=== PATIENT | female | born 1980 | race Caucasian/White ===

== ENCOUNTER 2022-09-18 19:50 | Emergency (ER) | payer MEDICAID, SELFPAY ==
[2022-09-18 20:06] VITALS: BP 144/90; PULSE 108; RESP 16; TEMP 36.4; O2SAT 98
[2022-09-18 21:11] LABS: Basophils Percent Auto 0.3 % (0.2-1.2); Eosinophils Absolute Auto 0.2 K/mm3 (0-0.3); Eosinophils Percent Auto 1.5 % (0-4.4); Hemoglobin 14.5 g/dL (12.0-15.0); Immature Granulocyte Absolute 0.05 K/mm3 (0.00-0.031); Immature Granulocyte Percent A 0.4 % (0-0.5); Lymphocytes Absolute Auto 1.35 K/mm3 (0.9-3.2); Lymphocytes Percent Auto 11.8 % (18.3-44.2); Mean Corpuscular HGB Conc 33.7 g/dl (32-36); Mean Corpuscular Hemoglobin 29.9 pg (26-34); Mean Corpuscular Volume 88.7 fl (80-100); Mean Platelet Volume 9.9 fl (7.4-10.4); Monocytes Absolute Auto 0.7 K/mm3 (0.1-0.6); Neutrophils Absolute Auto 9.1 K/mm3 (1.3-6.7); Platelet Count Result 352 k/mm3 (150-375); Red Blood Count 4.85 M/mm3 (4.2-5.4); White Blood Count 11.4 K/mm3 (4.5-10.0)
--- NOTE | 2022-09-18 21:11 | ED.GENADULT ---
HPI - General Adult General Chief complaint: Abdominal Pain Stated complaint: diarrhea, vomiting, abdominal pain Time Seen by Provider: 09/18/22 21:01 History of Present Illness HPI narrative: 42-year-old female with history of diabetes presented to the emergency department for evaluation of of nausea vomiting diarrhea and upper abdominal pain. Patient states that the symptoms started few days ago. Patient reports the diarrhea has since resolved but she still has nausea vomiting and epigastric abdominal pain. Patient describes the pain as sharp and is a 4 out of 10. Patient has only been taking Tylenol for pain control. Patient states she did have a recent rotator cuff surgery but has not been taking ibuprofen. Patient does have a prior history of cholecystectomy. Patient denies daily alcohol consumption and denies prior history of pancreatitis. Related Data Allergies Allergy/AdvReac Type Severity Reaction Status Date / Time No Known Allergies Allergy Verified 08/13/19 11:13 Review of Systems Review of Systems: CONSTITUTIONAL: Denies fever, chills, or sweats. EYES: Denies visual changes, redness, or discharge. ENT: Denies rhinorrhea, congestion, sore throat, or otalgia. CARDIOVASCULAR: Denies chest pain, palpitations, or edema. RESPIRATORY: Denies cough or dyspnea. GASTROINTESTINAL: See HPI GENITOURINARY: Denies dysuria or hematuria. SKIN: Denies rash or itching. MUSCULOSKELETAL: Denies back pain, joint pain, or myalgia. NEUROLOGIC: Denies headache, numbness, or weakness. [facility] Past Medical History Medical History (Updated 09/19/22 @ 00:00 by Background Dazaida) Anemia Anxiety Asthma Depression Diabetes GERD (gastroesophageal reflux disease) Surgical History Surgical History Hx of cholecystectomy Social History Social History Smoking packs per day: 0.5 Smoking cigarettes per day: 10.0 Smoking status: Current every day smoker Exam Narrative: APPEARANCE: Well appearing, no pain, no distress, well-nourished. HEAD: normocephalic, atraumatic. EYES: PERRLA/EOMI, conjunctivae clear. NOSE: Normal no drainage NECK: Supple. No adenopathy, no masses. RESPIRATORY: Airway patent, respirations nonlabored. Clear to auscultation bilaterally, no rales, rhonchi, wheezing. CARDIOVASCULAR: Regular rate and rhythm without murmurs rubs or gallops. ABDOMINAL: Soft, reproducible epigastric tenderness to palpation. Normal bowel sounds. MUSCULOSKELETAL: Moves all extremities. Strength/ROM intact, No edema, No calf tenderness. NEURO: Alert. Cranial nerves II through XII intact. Grossly intact SKIN: Warm, dry. Normal Color Course Course Emergency Course: Patient was treated with IV Zofran and IV fluids. Differential diagnosis for patient's symptoms does include gastroenteritis, colitis, gastroenteritis, esophagitis. Patient is mildly tender to palpation but has normal bowel sounds. No lower abdominal tenderness to palpation. Patient is being treated with a GI cocktail, IV fluids and IV Zofran. Patient is afebrile but does have a leukocytosis of 11.4. Patient hemoglobin is stable. Patient's blood glucose is elevated but patient is diabetic. Patient was treated with 1 L of IV normal saline. Patient did feel improved with treatment of the GI cocktail. Patient does have some elevated transaminases but patient's T bili is at baseline. Patient has no right upper quadrant tenderness to palpation. Patient's lipase is not elevated so less concern for pancreatitis. Due to patient's symptoms being resolved with a GI cocktail and patient having minimal tenderness to palpation and a nonsurgical abdomen patient will be discharged home with Zofran, clear liquid diet. Patient was encouraged to have close follow-up with her primary care physician. All question concerns were addressed and patient was well-appearing at
[2022-09-18 21:24] LABS: Alanine Aminotransferase 73 U/L (6-35); Alkaline Phosphatase 139 U/L (38-126); Anion Gap 10 mmol/L (8-16); Aspartate Amino Transferase 57 U/L (14-36); Bilirubin,Total 0.7 mg/dL (0.2-1.3); Blood Urea Nitrogen 8 mg/dL (7-17); Calcium 8.5 mg/dL (8.4-10.2); Carbon Dioxide 28 mmol/L (22-30); Chloride 96 mmol/L (98-107); Estimated CRCL calculation 152 ml/min; Estimated Glomerular Filt Rate > 60; Glucose 293 mg/dL (65-110); Lipase 18 U/L (23-300); Potassium 3.4 mmol/L (3.4-5.0); Sodium 134 mmol/L (137-145)
[2022-09-18] MEDS: SODIUM CHLORIDE 0.9% IV 1,000 ML 999 ML IV CONT (21:48)
[2022-09-18] MEDS: BELLADONNA ALK/PHENOB ELIX 10 ML, MAG HYDROX/ALUMINUM HYD/SIMETH 30 ML, LIDOCAINE HCL 2... PO (21:49)
[2022-09-18] MEDS: ONDANSETRON INJ 4 MG/2 ML VIAL IV PUSH (21:50)
== END 2022-09-18 23:01 | disposition home or self-care (01) ==
PROVIDERS: Emergency Medicine; Emergency Provider Emergency Medicine; PCP Emergency Medicine
DX: R11.2 Nausea with vomiting, unspecified (principal); R10.13 Epigastric pain; E11.9 Type 2 diabetes mellitus without complications; J45.909 Unspecified asthma, uncomplicated; K21.9 Gastro-esophageal reflux disease without esophagitis; Z86.2 Personal history of diseases of the blood and blood-forming organs and certain disorders involving the immune mechanism; F17.210 Nicotine dependence, cigarettes, uncomplicated
CPT/HCPCS: 36415; 80053; 83690; 85025; 96361; 96374; 99284; A9270; J2405; J7030

== ENCOUNTER 2022-10-08 07:53 | Outpatient (CLI) | payer MEDICAID, SELFPAY ==
--- NOTE | ~2022-10-08 | CT_ITS ---
EXAMINATION: CT abdomen pelvis w con DATE: 10/08/2022 08:19 INDICATION: Abdominal pain. Elevated liver function tests. Vomiting. TECHNIQUE: Computed tomography (CT) of the abdomen and pelvis was performed with 100 cc Omnipaque 350 intravenous contrast. The dose-length product was 1476.89 mGy-cm. Automated exposure control and ite rative reconstruction technique were employed. COMPARISON: CT dated 06/08/2016 FINDINGS: Lung bases are unremarkable. Heart size normal. No significant pleural or pericardial effus ion. No significant vascular abnormality. No lymphadenopathy. Fatty infiltration of the liver. Status post cholecystectomy. The spleen, pancreas, adrenal glands an d kidneys are unremarkable. There is an IUD in the uterus. Nonobstructive bowel pattern. Normal appen danish. No free air or free fluid. Mild lower thoracic and lumbar spondylosis. IMPRESSION: 1. Hepatic steatosis. Reviewed, dictated and finalized at location [facility] IMPRESSION: 1. Hepatic steatosis.
== END 2022-10-08 07:54 | disposition home or self-care (01) ==
PROVIDERS: PCP Emergency Medicine; Visit Provider Emergency Medicine
DX: R10.9 Unspecified abdominal pain (principal); R94.5 Abnormal results of liver function studies; R11.2 Nausea with vomiting, unspecified; K76.0 Fatty (change of) liver, not elsewhere classified
CPT/HCPCS: 74177; Q9967